=== PATIENT | male | born 1955 | race Caucasian/White ===

== ENCOUNTER → 2021-04-04 | Outpatient (CLI) | payer OTHER ==
[~2021-04-04] MED LIST: ASPIRIN325 PO; COZAAR 50 MG TA50 M1 PO; EFFIENT10 MG PO; LIPITOR40 MG PO; LISINOPRIL5 MG; LOPRESSOR100 MG PO; NITROGLYCERIN0.4 MG SL; PLAVIX 75 MG TA75 M1 PO; TOPROL XL50 MG; TOPROL XL50 MG PO
== END ==
LOC: SJCVCIMAG 09:30
PROVIDERS: ATTEND Internal Medicine Cardiovascular Disease
DX: I34.0 Nonrheumatic mitral (valve) insufficiency (principal); I25.10 Atherosclerotic heart disease of native coronary artery without angina pectoris; Z95.5 Presence of coronary angioplasty implant and graft